=== PATIENT | female | born 1980 | race American Indian/Alaskan Native ===

== ENCOUNTER 2021-06-19 03:39 | Emergency (ER) | payer SELFPAY ==
--- NOTE | 2021-06-19 08:03 | Emergency Department Report ---
ED Female HPI - General Chief complaint: Vaginal Bleeding Stated complaint: LLQ PAIN AND BLOODCLOTS Time Seen by Provider: 06/19/21 07:28 Source: EMS Mode of arrival: Stretcher Limitations: No Limitations - History of Present Illness Initial comments: During H&P, patient was not will to co-operate, loud, beligerant and cursing in room. After getting security to company me in the room, patient calmed down slightly so that I will be able to obtain an H&P. Patient reports that she thinks she is having a miscarriage. She states that she started bleeding 2 days ago. At first it was spotting but it has since gotten heavier. She states that she has been changing on average about 4-5 pads per day. She states that she is about 3 months , and thinks she currently has a "stillborn" inside of her because of the bleeding. She states that she found out she was April 25, 2021 which was around when her last period was. She is G2, P1 Ab0. She reports associated low abdominal cramping but otherwise no additional symptoms. MD Complaint: vaginal bleeding -: days(s) (2) - Related Data Previous Rx's Medication Instructions Recorded Last Taken Type Sulfamethoxazole/Trimethoprim 1 each PO BID #14 tablet 12/24/18 Unknown Rx [Bactrim DS TAB] Allergies Allergy/AdvReac Type Severity Reaction Status Date / Time No Known Allergies Allergy Unverified 12/24/18 08:39 ED Review of Systems ROS: Stated complaint: LLQ PAIN AND BLOODCLOTS Other details as noted in HPI ED Past Medical Hx - Past Medical History Hx Diabetes: Yes Additional medical history: Lung Cancer. Cerebral Palsy - Social History Smoking Status: Current Every Day Smoker Substance Use Type: Marijuana, Other - Medications Home Medications: Home Medications Medication Instructions Recorded Confirmed Last Taken Type Sulfamethoxazole/Trimethoprim 1 each PO BID #14 tablet 12/24/18 Unknown Rx [Bactrim DS TAB] ED Physical Exam - General Limitations: No Limitations ED Course Vital Signs 06/19/21 06/19/21 04:48 10:45 Temperature 98.2 F 98.0 F Pulse Rate 89 80 Respiratory 18 16 Rate Blood Pressure 108/68 119/69 [Right] O2 Sat by Pulse 98 98 Oximetry ED Medical Decision Making - Lab Data Result diagrams: 06/19/21 08:14 - Medical Decision Making Labs reviewed - patient H/H stable; her WBC was normal; Her platelete count was decreased at 112; Quant hcg negative; UA unremarkable. Patient currently not in any distress, she has been observed in the ER with a normal gait and talking on her phone. All results were discussed with patient. Is questionable whether patient was truly , and this bleeding could just be related to the start of her period. Overall, she will need to follow- up with [facility] for further follow-up and evaluation. Patient is hemodynamically stable. Her vital signs are normal. Patient stable at time of discharge per Critical care attestation.: If time is entered above; I have spent that time in minutes in the direct care of this critically ill patient, excluding procedure time. ED Disposition Clinical Impression: Abnormal vaginal bleeding Disposition: 01 HOME / SELF CARE / HOMELESS Is pt being admited?: No Does the pt Need Aspirin: No Condition: Stable Instructions: Abnormal Uterine Bleeding, [id number] Additional Instructions: You are blood test was negative. You will need to follow-up with your [employer] [facility] for your abnormal bleeding. If you do not have an [employer] B[employer] RIGGER will be provided for you on discharge instructions. You can take Tylenol and ibuprofen as needed for pain. Return to the ER if worse. Referrals: [facility] [Primary Care Provider] - 3-5 Days [facility] [Provider Group] - 3-5 Days Time of Disposition: 10:31
[2021-06-19 08:41] LABS: Basophils # (Auto) 0.1 K/mm3 (0.0-0.1); Basophils % (Auto) 0.8 % (0.0-1.8); Eosinophils # (Auto) 0.1 K/mm3 (0.0-0.4); Eosinophils % (Auto) 1.2 % (0.0-4.3); Hematocrit 45.7 % (30.3-42.9); Hemoglobin 14.9 gm/dl (10.1-14.3); Lymphocytes # (Auto) 2.4 K/mm3 (1.2-5.4); Mean Corpuscular HGB Conc 33 % (30-34); Mean Corpuscular Volume 87 fl (79-97); Monocytes # (Auto) 0.5 K/mm3 (0.0-0.8); Monocytes % (Auto) 7.2 % (0.0-7.3); Red Blood Count 5.24 M/mm3 (3.65-5.03); Red Cell Distribution Width 14.2 % (13.2-15.2)
[2021-06-19 08:42] LABS: Platelet Count 112 K/mm3 (140-440)
[2021-06-19 10:15] LABS: Bilirubin,Urine NEG (Negative); Blood,Urine LG (Negative); Color,Urine Yellow (Yellow)
[2021-06-19 10:46] VITALS: BP 119/69
== END 2021-06-19 10:46 | disposition home or self-care (01) ==
LOC: ED 03:39
DX: N93.9 Abnormal uterine and vaginal bleeding, unspecified (principal); E11.8 Type 2 diabetes mellitus with unspecified complications; F17.200 Nicotine dependence, unspecified, uncomplicated
CPT/HCPCS: 36415; 81001; 84702; 85025; 86900; 86901; 99283